=== PATIENT | female | born 1975 | race American Indian/Alaskan Native ===

== ENCOUNTER 2017-01-01 13:37 | Emergency (ER) | payer OTHER ==
[2017-01-01 14:37] LABS: Eosinophils % (Auto) 2.4 % (0.0-4.3); Hematocrit 41.4 % (30.3-42.9); Hemoglobin 13.1 gm/dl (10.1-14.3); Mean Corpuscular HGB Conc 32 % (30-34); Mean Corpuscular Volume 80 fl (79-97); Platelet Count 282 K/mm3 (140-440); Red Blood Count 5.18 M/mm3 (3.65-5.03); White Blood Count 8.6 K/mm3 (4.5-11.0)
[2017-01-01 14:41] LABS: Mean Corpuscular Hemoglobin 25 pg (28-32)
[2017-01-01] MEDS ORDERED: D5NS 0.2% 1,000 ML IV SCH (15:00)
[2017-01-01] MEDS ORDERED: TORADOL IV ONE (20:01)
[2017-01-01] MEDS ORDERED: MORPHINE IV ONE (20:01)
[2017-01-01] MEDS ORDERED: ZOFRAN IV ONE ×2 (20:01→22:37)
--- NOTE | 2017-01-01 20:15 | Emergency Department Report ---
ED General Adult HPI - General Chief complaint: Sickle Cell Crisis Stated complaint: SICKLE CELL ANEMIA Time Seen by Provider: 01/01/17 19:52 Source: patient Mode of arrival: Ambulatory Limitations: No Limitations - History of Present Illness Initial comments: 41-year-old female with a past medical history of sickle cell disease SS presents to the hospital complaints of pain secondary to sickle cell crisis. Symptoms started on the evening of December 30. Initially started having aching left leg pain and now she has bilateral hip pain and left arm pain. Pain is constant, moderate to severe in intensity. Patient sleeping all day and lethargic secondary to pain. She denies fever, cough, chest pain, or shortness of breath. Similar pain was sickle cell crisis in the past. She taken Motrin without relief. Therapy Aide Dr. Patricia located [facility]. - Related Data Previous Rx's Medication Instructions Recorded Last Taken Type oxyCODONE /ACETAMINOPHEN [Percocet 1 tab PO Q6HR PRN #20 tablet 01/01/14 Unknown Rx 5/325] HYDROcodone/APAP 5-325 [[place] 1 each PO Q6HR PRN #20 tablet 01/02/17 Unknown Rx 5/325] Ibuprofen [Motrin] 800 mg PO Q8HR PRN #30 tablet 01/02/17 Unknown Rx Ondansetron [Zofran Odt] 4 mg PO Q8HR PRN #20 tab.rapdis 01/02/17 Unknown Rx Allergies Allergy/AdvReac Type Severity Reaction Status Date / Time Milk Containing Products Allergy Swelling Verified 01/01/14 16:06 Sulfa (Sulfonamide Allergy Swelling Verified 01/01/14 16:06 Antibiotics) ED Review of Systems ROS: Stated complaint: SICKLE CELL ANEMIA Other details as noted in HPI Comment: All other systems reviewed and negative Other: Constitutional: No fevers chills Eyes: No eye pain visual changes ENT: No ear pain or throat pain Neck: Denies pain Respiratory: Denies cough wheezing shortness of breath Cardiovascular: Denies chest pain, palpitations, syncope GI: Denies abdominal pain, nausea, vomiting, diarrhea : Denies dysuria Musculoskeletal: As per HPI Skin: Denies rash, lesions, erythema Neurologic: Denies headache, numbness, weakness Psychiatric: Denies suicidal ideation, hallucinations ED Past Medical Hx - Past Medical History Previous Medical History?: Yes Hx Sickle Cell Disease: Yes Hx Headaches / Migraines: Yes - Surgical History Past Surgical History?: Yes Additional Surgical History: L3-L5 fusion - Social History Smoking Status: Never Smoker Substance Use Type: Alcohol - Medications Home Medications: Home Medications Medication Instructions Recorded Confirmed Last Taken Type oxyCODONE /ACETAMINOPHEN [Percocet 1 tab PO Q6HR PRN #20 tablet 01/01/14 Unknown Rx 5/325] HYDROcodone/APAP 5-325 [[place] 1 each PO Q6HR PRN #20 tablet 01/02/17 Unknown Rx 5/325] Ibuprofen [Motrin] 800 mg PO Q8HR PRN #30 tablet 01/02/17 Unknown Rx Ondansetron [Zofran Odt] 4 mg PO Q8HR PRN #20 tab.rapdis 01/02/17 Unknown Rx ED Physical Exam - General Limitations: No Limitations - Other Other exam information: General: No limitations, patient is alert in no acute distress Head exam: Atraumatic, normocephalic Eyes exam: Normal appearance ENT: Moist mucous membrane, normal oropharynx Neck exam: Normal inspection, full range of motion, no meningismus nontender Respiratory exam: Clear to auscultation bilateral, no wheezes, rales, crackles Cardiovascular: Normal rate and rhythm, normal heart sounds Abdomen: Soft, nondistended, and nontender, with normal bowel sounds, no rebound, or guarding Extremity: Full range of motion normal inspection no deformity Back: Normal Inspection, full range of motion, no tenderness Neurologic: Alert, oriented x3, cranial nerves intact, no motor or sensory deficit Psychiatric: normal affect, normal mood Skin: Warm, dry, intact ED Course Vital Signs 01/01/17 01/01/17 01/01/17 14:05 20:28 20:30 Temperature 98.8 F Pulse Rate 101 H 89 Respiratory 16 16 Rate Blood Pressure 143/90 132/82 O2 Sat by Pulse 99 83 L 99 Oximetry 01/01/17 01/01/17 01/01/17 20:41 20:51 21:00 Temperature Pulse Rate 81 115 H 92 H Respiratory 22 19 20 Rate Blood Pressure 132/82 139/85 130/92 O2 Sat by Pulse 98 99 98 Oximetry 01/01/17 01/01/17 01/01/17 21:11 21:21 21:31 Temperature Pulse Rate 95 H 95 H 84 Respiratory 27 H 13 13 Rate Blood Pressure 130/92 122/83 122/83 O2 Sat by Pulse 98 99 98 Oximetry 01/01/17 01/01/17 01/01/17 21:41 21:51 21:53 Temperature Pulse Rate 95 H 94 H Respiratory 16 15 18 Rate Blood Pressure 122/83 122/83 O2 Sat by Pulse 97 99 Oximetry 01/01/17 01/01/17 01/01/17 21:54 22:01 22:11 Temperature Pulse Rate 91 H 90 Respiratory 18 20 14 Rate Blood Pressure 122/83 122/83 O2 Sat by Pulse 97 99 Oximetry 01/01/17 01/01/17 01/01/17 22:21 22:23 22:24 Temperature Pulse Rate 90 Respiratory 20 18 18 Rate Blood Pressure 122/83 O2 Sat by Pulse 99 Oximetry 01/01/17 01/01/17 01/01/17 22:31 22:41 22:51 Temperature Pulse Rate 94 H 92 H 95 H Respiratory 11 L 16 9 L Rate Blood Pressure 122/83 122/83 122/83 O2 Sat by Pulse 98 99 98 Oximetry 01/01/17 01/01/17 01/01/17 23:01 23:11 23:21 Temperature Pulse Rate 105 H 93 H 85 Respiratory 13 22 17 Rate Blood Pressure 122/83 122/83 122/83 O2 Sat by Pulse 99 95 96 Oximetry 01/01/17 01/01/17 01/01/17 23:31 23:41 23:51 Temperature Pulse Rate 83 96 H 96 H Respiratory 17 17 17 Rate Blood Pressure 122/83 122/83 122/83 O2 Sat by Pulse 97 97 96 Oximetry 01/02/17 01/02/17 00:01 00:13 Temperature Pulse Rate 103 H Respiratory 17 18 Rate Blood Pressure 122/83 O2 Sat by Pulse 97 99 Oximetry - Reevaluation(s) Reevaluation #1: 01/02/17 00:48 Patient's pain improved. She is hesitant to receive high doses of narcotics that she reports a sensitivity to the medication. Additional dose will be given prior to discharge or residual pain ED Medical Decision Making - Lab Data Result diagrams: 01/01/17 14:12 Lab Results 01/01/17 Range/Units 14:12 WBC 8.6 (4.5-11.0) K/mm3 RBC 5.18 H (3.65-5.03) M/mm3 Hgb 13.1 (10.1-14.3) gm/dl Hct 41.4 (30.3-42.9) % MCV 80 (79-97) fl MCH 25 L (28-32) pg MCHC 32 (30-34) % RDW 14.0 (13.2-15.2) % Plt Count 282 (140-440) K/mm3 Lymph % (Auto) 27.2 (13.4-35.0) % [place] % (Auto) 5.1 (0.0-7.3) % Eos % (Auto) 2.4 (0.0-4.3) % Baso % (Auto) 1.0 (0.0-1.8) % Lymph # 2.3 (1.2-5.4) K/mm3 [place] # 0.4 (0.0-0.8) K/mm3 Eos # 0.2 (0.0-0.4) K/mm3 Baso # 0.1 (0.0-0.1) K/mm3 Seg Neutrophils % 64.3 (40.0-70.0) % Seg Neutrophils # 5.6 (1.8-7.7) K/mm3 Percent Retic 1.10 (0.78-2.58) % - Medical Decision Making Plan to discharge patient home with pain medication. Symptoms suggestive of sickle cell crisis however, patient has a normal H&H and retake count. No leukocytosis - Differential Diagnosis sickle cell crisis, musculoskeletal pain, drug-seeking, infection Critical Care Time: No Critical care attestation.: If time is entered above; I have spent that time in minutes in the direct care of this critically ill patient, excluding procedure time. ED Disposition Clinical Impression: Sickle cell crisis Disposition: DC- TO HOME OR SELFCARE Is pt being admited?: No Does the pt Need Aspirin: No Condition: Stable Instructions: Sickle Cell Crisis (ED) Additional Instructions: Take medications are prescribed. Follow up with your ecosystem ecology professor. Return if symptoms worsen. Prescriptions: HYDROcodone/APAP 5-325 [[place] 5/325] 1 each PO Q6HR PRN #20 tablet PRN Reason: Pain Ibuprofen [Motrin] 800 mg PO Q8HR PRN #30 tablet PRN Reason: Pain Ondansetron [Zofran Odt] 4 mg PO Q8HR PRN #20 tab.rapdis PRN Reason: Nausea And Vomiting Referrals: DR VIRGIL [Other] - 3-5 Days Time of Disposition: 00:56
[2017-01-01] MEDS ORDERED: DILAUDID IV ONE (22:37)
[2017-01-02] MEDS ORDERED: DILAUDID IV ONE (00:48)
[2017-01-02 01:51] VITALS: BP 117/74
== END 2017-01-02 01:51 | disposition home or self-care (01) ==
LOC: ED 13:37
DX: D57.00 Hb-SS disease with crisis, unspecified (principal); G43.909 Migraine, unspecified, not intractable, without status migrainosus; Z88.2 Allergy status to sulfonamides; Z91.011 Allergy to milk products
CPT/HCPCS: 36415; 85025; 85045; 96374; 96375; 96376; 99282; J1170; J1885; J2270; J2405

== ENCOUNTER 2017-06-24 13:23 | Emergency (ER) | payer OTHER ==
--- NOTE | 2017-06-24 17:04 | Emergency Department Report ---
Chief Complaint: Upper Respiratory Infection Stated Complaint: COLD SX Time Seen by Provider: 06/24/17 16:58 - HPI History of Present Illness: Pt is a 41 yo female who presents with coughing, fever last pm ; pt states she took Motrin but noted temp went back up . Pt states she uses an inhaler and has history of asthma. Pt stated that she has pain in her frontal forehead region and noted that the cough is worse at night. - ROS Review of Systems: ros: other systems reveiwed and neg except as noted per HPI - Exam Vital Signs: Vital Signs 06/24/17 13:26 Temperature 97.9 F Pulse Rate 106 H Respiratory 18 Rate Blood Pressure 137/87 O2 Sat by Pulse 98 Oximetry Physical Exam: ros: other systems reviewed and neg except as noted per HPI PE: General : awake, alert in no acute distress Heent: eomi, perrla, mmm; no peritonsillar abscess; no kissing tonsilsp; no erythema of pharynx; tenderness over the frontal and maxillary sinuses Lungs: clear] Heart: rrr no m/g/r abd: soft, nd, nt +Bs, no peritoneal signs MSE screening note: Focused history and physical exam performed. Due to findings the following was ordered: f ED Disposition for MSE Clinical Impression: Sinusitis, Viral syndrome Disposition: DC-01 TO HOME OR SELFCARE Condition: Good Instructions: Sinusitis (ED), Viral Syndrome (ED) Additional Instructions: drink plenty of fluids; return sooner if worse or if further concerns Prescriptions: Amoxicillin/Potassium Clav [Augmentin 875-125 Tablet] 1 each PO BID 10 Days #20 tablet Referrals: PRIMARY CARE, [Primary Care Provider] - 3-5 Days
[2017-06-24] MEDS ORDERED: MOTRIN PO ONE (18:24)
[2017-06-24 19:02] VITALS: BP 121/83
== END 2017-06-24 19:04 | disposition home or self-care (01) ==
LOC: ED 13:23
DX: J32.9 Chronic sinusitis, unspecified (principal); B34.9 Viral infection, unspecified; Z88.2 Allergy status to sulfonamides; Z91.011 Allergy to milk products
CPT/HCPCS: 99282

== ENCOUNTER 2018-11-26 19:58 | Emergency (ER) | payer OTHER ==
--- NOTE | 2018-11-26 20:48 | Event Note ---
ED Screening Note ED Screening Note: pt presents with abscess to the left axilla has increased in size has not been drainage has had before in the past no fever PMHx sickle cell, asthma, chronic back problems This initial assessment/diagnostic orders/clinical plan/treatment(s) is/are subject to change based on patients health status, clinical progression and re- assessment by fellow clinical providers in the ED. Further treatment and workup at subsequent clinical providers discretion. Patient/guardian urged not to elope from the ED as their condition may be serious if not clinically assessed and managed.
[2018-11-26] MEDS ORDERED: ZOFRAN ODT PO ONE (22:03)
[2018-11-26] MEDS ORDERED: TORADOL IM ONE (22:03)
[2018-11-26] MEDS ORDERED: TYLENOL PO ONE (22:03)
[2018-11-26] MEDS ORDERED: CLEOCIN PO ONE (22:03)
[2018-11-26] MEDS ORDERED: XYLOCAINE 1% MPF 5 mL INFILTRATI ONE (22:03)
--- NOTE | 2018-11-27 01:07 | Emergency Department Report ---
- General Chief complaint: Skin/Abscess/Foreign Body Stated complaint: KNOT UNDER LEFT ARM WITH PAIN Time Seen by Provider: 11/26/18 20:47 Source: patient Mode of arrival: Ambulatory Limitations: No Limitations - History of Present Illness Initial comments: Patient is a 3-year-old -Maur[place] female with a history of chronic pain due to sickle cell anemia who presents to the ED with complaint of a acute onset persistent painful swelling erythematous maculopapular fluctuant rash for the last 1-1/2 weeks in the left axilla. Patient states that the swelling on the pain got worse in the last 2 days. Patient denies fever, chills, nausea, vomiting, dizziness, headache, chest pain, shortness of breath of numbness and tingling of her left arm. MD complaint: rash, abscess/boil -: Sudden, week(s) (1.5 weeks) Tetanus Up to Date: yes Location: LUE (left axilla) Severity scale (0 -10): 8 Quality: aching, sharp Consistency: constant Improves with: none Worsens with: none Context: none Associated symptoms: denies other symptoms Treatments Prior to Arrival: none - Related Data Previous Rx's Medication Instructions Recorded Last Taken Type oxyCODONE /ACETAMINOPHEN [Percocet 1 tab PO Q6HR PRN #20 tablet 01/01/14 Unknown Rx 5/325] HYDROcodone/APAP 5-325 [[place] 1 each PO Q6HR PRN #20 tablet 01/02/17 Unknown Rx 5/325] Ibuprofen [Motrin] 800 mg PO Q8HR PRN #30 tablet 01/02/17 Unknown Rx Ondansetron [Zofran Odt] 4 mg PO Q8HR PRN #20 tab.rapdis 01/02/17 Unknown Rx Amoxicillin/Potassium Clav 1 each PO BID 10 Days #20 tablet 06/24/17 Unknown Rx [Augmentin 875-125 Tablet] ALBUTEROL Inhaler (OR & NICU) 2 puff IH QID PRN #1 inhalation 04/08/18 Unknown Rx [ProAir HFA Inhaler] HYDROcodone/APAP 5-325 [[place] 1 each PO Q6HR PRN #15 tablet 04/08/18 Unknown Rx 5/325] predniSONE [Deltasone] 20 mg PO QDAY #5 tab 04/08/18 Unknown Rx Acetaminophen/Codeine [Tylenol 1 tab PO Q6H PRN #15 tab 11/27/18 Unknown Rx /Codeine # 3 tab] Clindamycin [Clindamycin CAP] 300 mg PO Q8HR #60 capsule 11/27/18 Unknown Rx Ibuprofen [Motrin] 800 mg PO Q8HR PRN #20 tablet 11/27/18 Unknown Rx Ondansetron [Zofran Odt] 4 mg PO Q6HR #15 tab.rapdis 11/27/18 Unknown Rx cephALEXin [Keflex] 500 mg PO Q8HR #30 cap 11/27/18 Unknown Rx Allergies Allergy/AdvReac Type Severity Reaction Status Date / Time Milk Containing Products Allergy Swelling Verified 06/24/17 13:26 Sulfa (Sulfonamide Allergy Swelling Verified 06/24/17 13:26 Antibiotics) Abscess Boil HPI - HPI Chief Complaint: Skin/Abscess/Foreign Body Stated Complaint: KNOT UNDER LEFT ARM WITH PAIN Time Seen by Provider: 11/26/18 20:47 Duration: >1 Week Location: Upper Extremity (left axilla) Severity: Severe History: Yes Pain, Yes Previous History, No Fever, No Purulent Drainage, No Numbness, No Foreign Body, No Insect Bite HPI: Patient is a 3-year-old -[place] female with a history of chronic pain due to sickle cell anemia who presents to the ED with complaint of a acute onset persistent painful swelling erythematous maculopapular fluctuant rash for the last 1-1/2 weeks in the left axilla. Patient states that the swelling on the pain got worse in the last 2 days. Patient denies fever, chills, nausea, vomiting, dizziness, headache, chest pain, shortness of breath of numbness and tingling of her left arm. Home Medications: Previous Rx's Medication Instructions Recorded Last Taken Type oxyCODONE /ACETAMINOPHEN [Percocet 1 tab PO Q6HR PRN #20 tablet 01/01/14 Unknown Rx 5/325] HYDROcodone/APAP 5-325 [[place] 1 each PO Q6HR PRN #20 tablet 01/02/17 Unknown Rx 5/325] Ibuprofen [Motrin] 800 mg PO Q8HR PRN #30 tablet 01/02/17 Unknown Rx Ondansetron [Zofran Odt] 4 mg PO Q8HR PRN #20 tab.rapdis 01/02/17 Unknown Rx Amoxicillin/Potassium Clav 1 each PO BID 10 Days #20 tablet 06/24/17 Unknown Rx [Augmentin 875-125 Tablet] ALBUTEROL Inhaler (OR & NICU) 2 puff IH QID PRN #1 inhalation 04/08/18 Unknown Rx [ProAir HFA Inhaler] HYDROcodone/APAP 5-325 [[place] 1 each PO Q6HR PRN #15 tablet 04/08/18 Unknown Rx 5/325] predniSONE [Deltasone] 20 mg PO QDAY #5 tab 04/08/18 Unknown Rx Acetaminophen/Codeine [Tylenol 1 tab PO Q6H PRN #15 tab 11/27/18 Unknown Rx /Codeine # 3 tab] Clindamycin [Clindamycin CAP] 300 mg PO Q8HR #60 capsule 11/27/18 Unknown Rx Ibuprofen [Motrin] 800 mg PO Q8HR PRN #20 tablet 11/27/18 Unknown Rx Ondansetron [Zofran Odt] 4 mg PO Q6HR #15 tab.rapdis 11/27/18 Unknown Rx cephALEXin [Keflex] 500 mg PO Q8HR #30 cap 11/27/18 Unknown Rx Allergies/Adverse Reactions: Allergies Allergy/AdvReac Type Severity Reaction Status Date / Time Milk Containing Products Allergy Swelling Verified 06/24/17 13:26 Sulfa (Sulfonamide Allergy Swelling Verified 06/24/17 13:26 Antibiotics) ED Review of Systems ROS: Stated complaint: KNOT UNDER LEFT ARM WITH PAIN Other details as noted in HPI Constitutional: denies: chills, fever Eyes: denies: eye pain, eye discharge, vision change ENT: denies: ear pain, throat pain Respiratory: denies: cough, shortness of breath, wheezing Cardiovascular: denies: chest pain, palpitations Endocrine: no symptoms reported Gastrointestinal: denies: abdominal pain, nausea, diarrhea Genitourinary: denies: urgency, dysuria, discharge Musculoskeletal: arthralgia, myalgia, other (left axilla swollen painful rash). denies: back pain, joint swelling Skin: rash (erythematous swollen severe painful rash), change in color. denies: lesions Neurological: denies: headache, weakness, paresthesias Psychiatric: denies: anxiety, depression Hematological/Lymphatic: denies: easy bleeding, easy bruising ED Past Medical Hx - Past Medical History Previous Medical History?: Yes Hx Sickle Cell Disease: Yes Hx Headaches / Migraines: Yes Hx Asthma: Yes - Surgical History Past Surgical History?: Yes Additional Surgical History: L3-L5 fusion - Social History Smoking Status: Never Smoker Substance Use Type: None - Medications Home Medications: Home Medications Medication Instructions Recorded Confirmed Last Taken Type oxyCODONE /ACETAMINOPHEN [Percocet 1 tab PO Q6HR PRN #20 tablet 01/01/14 Unknown Rx 5/325] HYDROcodone/APAP 5-325 [[place] 1 each PO Q6HR PRN #20 tablet 01/02/17 Unknown Rx 5/325] Ibuprofen [Motrin] 800 mg PO Q8HR PRN #30 tablet 01/02/17 Unknown Rx Ondansetron [Zofran Odt] 4 mg PO Q8HR PRN #20 tab.rapdis 01/02/17 Unknown Rx Amoxicillin/Potassium Clav 1 each PO BID 10 Days #20 tablet 06/24/17 Unknown Rx [Augmentin 875-125 Tablet] ALBUTEROL Inhaler (OR & NICU) 2 puff IH QID PRN #1 inhalation 04/08/18 Unknown Rx [ProAir HFA Inhaler] HYDROcodone/APAP 5-325 [[place] 1 each PO Q6HR PRN #15 tablet 04/08/18 Unknown Rx 5/325] predniSONE [Deltasone] 20 mg PO QDAY #5 tab 04/08/18 Unknown Rx Acetaminophen/Codeine [Tylenol 1 tab PO Q6H PRN #15 tab 11/27/18 Unknown Rx /Codeine # 3 tab] Clindamycin [Clindamycin CAP] 300 mg PO Q8HR #60 capsule 11/27/18 Unknown Rx Ibuprofen [Motrin] 800 mg PO Q8HR PRN #20 tablet 11/27/18 Unknown Rx Ondansetron [Zofran Odt] 4 mg PO Q6HR #15 tab.rapdis 11/27/18 Unknown Rx cephALEXin [Keflex] 500 mg PO Q8HR #30 cap 11/27/18 Unknown Rx ED Physical Exam - General Limitations: No Limitations General appearance: alert, in no apparent distress - Head Head exam: Present: atraumatic, normocephalic, normal inspection - Eye Eye exam: Present: normal appearance, PERRL, EOMI Pupils: Present: normal accommodation - ENT ENT exam: Present: normal exam, normal orophraynx, mucous membranes moist, TM's normal bilaterally, normal external ear exam - Neck Neck exam: Present: normal inspection, full ROM - Respiratory Respiratory exam: Present: normal lung sounds bilaterally. Absent: respiratory distress, wheezes, rales, rhonchi, chest wall tenderness, accessory muscle use, decreased breath sounds, prolonged expiratory - Cardiovascular Cardiovascular Exam: Present: normal rhythm, tachycardia, normal heart sounds. Absent: systolic murmur, diastolic murmur, rubs, gallop - GI/Abdominal GI/Abdominal exam: Present: soft, normal bowel sounds. Absent: distended, tenderness, guarding, rebound, hyperactive bowel sounds, organomegaly - Rectal Rectal exam: Present: deferred - Extremities Exam Extremities exam: Present: normal inspection, full ROM, tenderness (left arm and axilla), normal capillary refill. Absent: pedal edema, joint swelling - Back Exam Back exam: Present: normal inspection, full ROM. Absent: tenderness, CVA tenderness (R), CVA tenderness (L), muscle spasm, vertebral tenderness - Neurological Exam Neurological exam: Present: alert, oriented X3, CN II-XII intact, normal gait, reflexes normal - Psychiatric Psychiatric exam: Present: normal affect, normal mood - Skin Skin exam: Present: warm, dry, intact, normal color, rash (erythematous swollen severely tender maculopapular fluctuant rash on left axilla), erythema ED Course Vital Signs 11/26/18 20:47 Temperature 97.9 F Pulse Rate 105 H Respiratory 18 Rate Blood Pressure 124/78 O2 Sat by Pulse 96 Oximetry - Reevaluation(s) Reevaluation #1: 11/27/18 01:07 Patient is alert and oriented 3 and is not in distress. The patient was treated for pain and also given initial oral antibiotics in the ED. Left axilla as well as cleaned and a local anesthetic lidocaine 1% solution was added to achieve anesthesia. The abscess was incised and drained and patient converted pain . The wound was then cleaned thoroughly and packed and dressed appropriately. Patient was discharged home on pain medications and oral antibiotics and advised to return to the ED in 2 days for wound recheck and packing removal. Patient was advised to follow-up with her primary care physician in 7-10 days for reevaluation or return to the ED immediately if symptoms get worse. - I & D Left Arm Type of Procedure: Simple (left axilla) Site: 5 cm x 5 cm Blade Size: 11 I & D Procedure: betadine prep, sterile drapes applied, sterile dressing applied Progress: Patient tolerated procedure well. Wound cleaned and dressed after packing was placed. ED Medical Decision Making - Medical Decision Making Patient is alert and oriented 3 and is not in distress. The patient was treated for pain and also given initial oral antibiotics in the ED. Left axilla as well as cleaned and a local anesthetic lidocaine 1% solution was added to achieve anesthesia. The abscess was incised and drained and patient converted pain . The wound was then cleaned thoroughly and packed and dressed appropriately. Patient was discharged home on pain medications and oral antibiotics and advised to return to the ED in 2 days for wound recheck and packing removal. Patient was advised to follow-up with her primary care physician in 7-10 days for reevaluation or return to the ED immediately if symptoms get worse. - Differential Diagnosis abscess incision and drainage; Cellulitis, Hidradenitis suppurativa Critical care attestation.: If time is entered above; I have spent that time in minutes in the direct care of this critically ill patient, excluding procedure time. ED Disposition Clinical Impression: Hidradenitis suppurativa of left axilla, Cellulitis of left axilla, Status post incision and drainage Disposition: DC-01 TO HOME OR SELFCARE Is pt being admited?: No Does the pt Need Aspirin: No Condition: Stable Instructions: Cellulitis (ED), Abscess (ED) Additional Instructions: Take medications with food, drink plenty of fluids and follow up with your primary care physician in 7-10 days for reevaluation. Return to the ED in 2 days for wound recheck and packing removal. Otherwise return to the ED immediately if symptoms get worse. Prescriptions: Clindamycin [Clindamycin CAP] 300 mg PO Q8HR #60 capsule cephALEXin [Keflex] 500 mg PO Q8HR #30 cap Ibuprofen [Motrin] 800 mg PO Q8HR PRN #20 tablet PRN Reason: Pain , Severe (7-10) Acetaminophen/Codeine [Tylenol /Codeine # 3 tab] 1 tab PO Q6H PRN #15 tab PRN Reason: Pain , Severe (7-10) Ondansetron [Zofran Odt] 4 mg PO Q6HR #15 tab.rapdis Referrals: VIVIAN REMY MD [Primary Care Provider] - 3-5 Days Forms: Work/School Release Form(ED) Time of Disposition: 01:12 Print Language: OCCITAN
[2018-11-27 03:15] VITALS: BP 127/76
== END 2018-11-27 01:25 | disposition home or self-care (01) ==
LOC: ED 19:58
DX: L73.2 Hidradenitis suppurativa (principal); L03.112 Cellulitis of left axilla; G43.909 Migraine, unspecified, not intractable, without status migrainosus; J45.909 Unspecified asthma, uncomplicated; Z79.899 Other long term (current) drug therapy; Z88.2 Allergy status to sulfonamides; Z91.011 Allergy to milk products
CPT/HCPCS: 10060; 96372; 99282; J1885; Q0162

== ENCOUNTER 2019-04-08 12:30 | Emergency (ER) | payer OTHER ==
--- NOTE | 2019-04-08 14:45 | Event Note ---
ED Screening Note Date of service: 04/08/19 Time: 14:41 ED Screening Note: This is a 43 y.o. F. that presents to the ER with left hip pain, headache, and neck pain s/p fall 2 nights ago. Patient states she slipped on oil outside of her Monday night around 8 or 9 PM. This initial assessment/diagnostic orders/clinical plan/treatment(s) is/are subject to change based on patients health status, clinical progression and re- assessment by fellow clinical providers in the ED. Further treatment and workup at subsequent clinical providers discretion. Patient/guardian urged not to elope from the ED as their condition may be serious if not clinically assessed and managed. Initial orders include: XR left hip an C-spine
--- NOTE | 2019-04-08 15:18 | XRay Report ---
LEFT HIP 2 VIEWS INDICATION / CLINICAL INFORMATION: hip pain, s/p fall COMPARISON: None available. FINDINGS: BONES / JOINT(S): No acute fracture or subluxation. No significant arthritis. SOFT TISSUES: No significant abnormality. ADDITIONAL FINDINGS: None. Signer Name: Aston Kaba MD Signed: 04/08/2019 3:14 PM Workstation Name: [id number]
--- NOTE | 2019-04-08 15:19 | XRay Report ---
LUMBAR SPINE 3 VIEWS INDICATION: Pain status post fall COMPARISON: None. FINDINGS: There is no fracture, subluxation, or other acute radiographic abnormality of the lumbar spine. There is discogenic degenerative change L5-S1 Signer Name: Aston Kaba MD Signed: 04/08/2019 3:15 PM Workstation Name: [id number]
[2019-04-08] MEDS ORDERED: HYDROcodone/ACETAMINOPHEN 5-325 MG TAB PO ONE (16:02)
[2019-04-08 16:44] VITALS: BP 145/98
--- NOTE | 2019-04-08 16:49 | XRay Report ---
CERVICAL SPINE 3 VIEWS INDICATION / CLINICAL INFORMATION: Slipped and fell on Monday with neck pain COMPARISON: None available. FINDINGS: BONES / JOINT(S): There is [id number] nonspecific reversal of the normal cervical lordosis. The vertebral body heights and disc spaces are well-maintained. There is no evidence of fracture or subl uxation. SOFT TISSUES: The prevertebral soft tissues are normal. ADDITIONAL FINDINGS: The lung apices are clear. IMPRESSION: Mild to moderate nonspecific reversal of the normal cervical lordosis without acute osseo us abnormality. Signer Name: Luis Casey MD Signed: 04/08/2019 4:44 PM Workstation Name: [id number]
--- NOTE | 2019-04-08 17:00 | Emergency Department Report ---
HPI - General Chief Complaint: Back Pain/Injury Time Seen by Provider: 04/08/19 14:41 - HPI HPI: 43-year-old -[place] female presents to the emergency department with complaint of a 2 day history of some left hip pain, left lower back pain and neck pain after she fell while getting out of her SUV. She says that she slipped as she was getting out and she hit her hip and buttock on the ground and her neck on the foot rail. She denies hitting her head or any loss of consciousness. She has a past medical history of asthma, migraine headaches, sickle cell disease and chronic back pain with a L3 to L5 fusion many years ago. She's been trying some ibuprofen and Aleve for her symptoms without any relief. She denies any problems with bowel or bladder, numbness or paresthesias or any neurological deficits. ED Past Medical Hx - Past Medical History Previous Medical History?: Yes Hx Sickle Cell Disease: Yes Hx Headaches / Migraines: Yes Hx Asthma: Yes - Surgical History Past Surgical History?: Yes Additional Surgical History: L3-L5 fusion - Social History Smoking Status: Never Smoker Substance Use Type: None - Medications Home Medications: Home Medications Medication Instructions Recorded Confirmed Last Taken Type oxyCODONE /ACETAMINOPHEN [Percocet 1 tab PO Q6HR PRN #20 tablet 01/01/14 Unknown Rx 5/325] Ibuprofen [Motrin] 800 mg PO Q8HR PRN #30 tablet 01/02/17 Unknown Rx Ondansetron [Zofran Odt] 4 mg PO Q8HR PRN #20 tab.rapdis 01/02/17 Unknown Rx Amoxicillin/Potassium Clav 1 each PO BID 10 Days #20 tablet 06/24/17 Unknown Rx [Augmentin 875-125 Tablet] ALBUTEROL Inhaler (OR & NICU) 2 puff IH QID PRN #1 inhalation 04/08/18 Unknown Rx [ProAir HFA Inhaler] HYDROcodone/APAP 5-325 [[place] 1 each PO Q6HR PRN #15 tablet 04/08/18 Unknown Rx 5/325] predniSONE [Deltasone] 20 mg PO QDAY #5 tab 04/08/18 Unknown Rx Acetaminophen/Codeine [Tylenol 1 tab PO Q6H PRN #15 tab 11/27/18 Unknown Rx /Codeine # 3 tab] Clindamycin [Clindamycin CAP] 300 mg PO Q8HR #60 capsule 11/27/18 Unknown Rx Ibuprofen [Motrin] 800 mg PO Q8HR PRN #20 tablet 11/27/18 Unknown Rx Ondansetron [Zofran Odt] 4 mg PO Q6HR #15 tab.rapdis 11/27/18 Unknown Rx cephALEXin [Keflex] 500 mg PO Q8HR #30 cap 11/27/18 Unknown Rx HYDROcodone/APAP 5-325 [[place] 1 each PO Q6HR PRN #10 tablet 04/08/19 Unknown Rx 5-325 mg TAB] ED Review of Systems ROS: Stated complaint: FALL/LT HIP PAIN Other details as noted in HPI Comment: All other systems reviewed and negative Constitutional: denies: chills, fever Eyes: denies: eye pain, vision change ENT: denies: ear pain, throat pain Respiratory: denies: cough, shortness of breath Cardiovascular: denies: chest pain, palpitations Gastrointestinal: denies: abdominal pain, vomiting Genitourinary: denies: dysuria, discharge Musculoskeletal: back pain, arthralgia, myalgia Skin: denies: rash, lesions Neurological: denies: weakness, numbness, paresthesias Physical Exam - Physical Exam Vital Signs: Vital Signs 04/08/19 04/08/19 14:43 16:41 Temperature 97.8 F 98.1 F Pulse Rate 77 102 H Respiratory 18 18 Rate Blood Pressure 123/82 145/98 O2 Sat by Pulse 100 92 Oximetry Physical Exam: GENERAL: The patient is well-developed well-nourished. HENT: Normocephalic. Atraumatic. Patient has moist mucous membranes. EYES: Extraocular motions are intact. Pupils equal reactive to light bilaterally. NECK: Supple. Trachea is midline. There is midline and bilateral paraspinal tenderness to palpation but no step-off or deformity. CHEST/LUNGS: Clear to auscultation. There is no respiratory distress noted. HEART/CARDIOVASCULAR: Regular. There is no tachycardia. There is no murmur. ABDOMEN: There is no abdominal distention. SKIN: Skin is warm and dry. NEURO: The patient is awake, alert, and oriented. The patient is cooperative. The patient has no focal neurologic deficits. Normal speech. Cranial nerves II through XII grossly intact. MUSCULOSKELETAL: There is reproducible tenderness to palpation to the left lateral hip but no obvious deformity. There is no limitation range of motion. BACK: There is both midline and left-sided paraspinal lumbar tenderness to palpation but no step-off or deformity. ED Course Vital Signs 04/08/19 04/08/19 14:43 16:41 Temperature 97.8 F 98.1 F Pulse Rate 77 102 H Respiratory 18 18 Rate Blood Pressure 123/82 145/98 O2 Sat by Pulse 100 92 Oximetry ED Medical Decision Making - Radiology Data Radiology results: image reviewed interpreted by me: X-ray of the lumbar and cervical spines do not show any fracture, subluxation or any acute process. X-ray of the left hip does not show any fracture, dislocation, or any acute process. - Medical Decision Making This patient presents with some neck, low back and hip pain after falling 2 days ago while getting out of her truck. X-rays were done of these regions that did not show any fracture, dislocation, subluxation, or any other acute process. The patient is ambulatory and stable appearing, but is sore. She has been given a prescription for a small amount of pain medication. The patient already has established care with a orthopedist including a spinal Dr. for history of a lumbar fusion. She will return to the ER with any worsening of her symptoms or any acute distress. Vital signs stable throughout her ED course. - Differential Diagnosis fracture, contusion, sprain, strain Critical Care Time: No Critical care attestation.: If time is entered above; I have spent that time in minutes in the direct care of this critically ill patient, excluding procedure time. ED Disposition Clinical Impression: Neck pain, Left hip pain Fall Qualifiers: Encounter type: initial encounter Qualified Code(s): W19.XXXA - Unspecified fall, initial encounter Back pain Qualifiers: Back pain location: low back pain Chronicity: unspecified Back pain laterality: left Sciatica presence: without sciatica Qualified Code(s): M54.5 - Low back rosy n Disposition: TO HOME OR SELFCARE Is pt being admited?: No Condition: Stable Instructions: Arthralgia (ED), Back Pain (ED), Fall Prevention (ED) Additional Instructions: Please follow-up with your primary care physician and orthopedist in the next few days. Return to the emergency Department with any worsening of your symptoms or any acute distress. You have been prescribed a medication that is sedating and therefore should not be taken prior to driving, working, and responsible for children and in no way should be mixed with alcohol of any quantity. Prescriptions: HYDROcodone/APAP 5-325 [[place] 5-325 mg TAB] 1 each PO Q6HR PRN #10 tablet PRN Reason: Pain Referrals: Orthopedist, Your [Other] - 2-3 Days Forms: Work/School Release Form(ED) Time of Disposition: 17:01
== END 2019-04-08 17:13 | disposition home or self-care (01) ==
LOC: ED 12:30
DX: M54.2 Cervicalgia (principal); M25.552 Pain in left hip; M54.5 Low back pain; G43.909 Migraine, unspecified, not intractable, without status migrainosus; J45.909 Unspecified asthma, uncomplicated; Z79.899 Other long term (current) drug therapy; Z88.2 Allergy status to sulfonamides; Z91.011 Allergy to milk products; W01.198A Fall on same level from slipping, tripping and stumbling with subsequent striking against other object, initial encounter; Y93.89 Activity, other specified; Y92.89 Other specified places as the place of occurrence of the external cause; Y99.8 Other external cause status
CPT/HCPCS: 72040; 72100